=== PATIENT | male | born 1970 | race Hispanic/Latino ===

== ENCOUNTER 2018-03-08 12:50 | Emergency (ER) | payer OTHER ==
[2018-03-08] MEDS: NS 1,000 ML IV ×3 (13:30→15:15)
[2018-03-08 13:50] LABS: ABG HCO3 23.5 MEQ/L (22.0-26.0); ABG O2 SATURATION 94.7 % (95.0-99.0); ABG PARTIAL PRESSURE CO2 35.8 mmHg (35.0-45.0); ABG PARTIAL PRESSURE O2 71.5 mmHg (75.0-100.0); ABG STANDARD HCO3 24.4 MEQ/L (22.0-26.0); ABG TOTAL CO2 24.6 MEQ/L (22.0-29.0); ABG pH (ARTERIAL) 7.435 UNITS (7.350-7.450)
[2018-03-08 13:53] LABS: BASO # 0.1 10^3/uL (0.0-0.2); BASO % 0.8 % (0.0-1.0); EOS # 0.2 10^3/uL (0.0-0.50); EOS % 1.2 % (0.0-3.0); HEMATOCRIT 49.8 % (42.0-52.0); HEMOGLOBIN 17.9 g/dl (13.5-17.5); IMMATURE GRANULOCYTE % 1.1 % (0-3.0); LYMPH # 3.4 10^3/uL (1.5-4.5); MEAN CORPUSCULAR HEMOGLOBIN 28.5 pg (27.0-33.0); MEAN CORPUSCULAR HGB CONC 35.9 g/dl (32.0-36.5); MEAN CORPUSCULAR VOLUME 79.2 fl (80.0-96.0); MONO # 1.2 10^3/uL (0.0-0.8); MONO % 8.7 % (0.0-5.0); NEUTROPHILS # 8.6 10^3/uL (1.8-7.7); NEUTROPHILS % 63.2 % (36.0-66.0); PLATELET COUNT, AUTOMATED 238 10^3/uL (150-450); RED BLOOD COUNT 6.29 10^6/uL (4.30-6.10); RED CELL DISTRIBUTION WIDTH 11.7 % (11.5-14.5); WHITE BLOOD COUNT 13.5 10^3/uL (4.0-10.0)
[2018-03-08] MEDS: HumuLIN R (REGULAR) INSULIN (NovoLIN R) **100U/ML** PER UNIT IV (13:57)
[2018-03-08 14:08] LABS: ANION GAP 13 MEQ/L (8-16); BLOOD UREA NITROGEN 24 MG/DL (7-18); CALCIUM LEVEL 9.7 MG/DL (8.5-10.1); CARBON DIOXIDE LEVEL 23 MEQ/L (21-32); CHLORIDE LEVEL 89 MEQ/L (98-107); CREATININE FOR GFR 1.21 MG/DL (0.70-1.30); GLOMERULAR FILTRATION RATE > 60.0 (>60); POTASSIUM SERUM 4.2 MEQ/L (3.5-5.1); SODIUM LEVEL 125 MEQ/L (136-145)
[2018-03-08 14:12] LABS: ALBUMIN 3.8 GM/DL (3.2-5.2); ALBUMIN/GLOBULIN RATIO 0.78 (1.00-1.93); ALKALINE PHOSPHATASE 148 U/L (45-117); ALT/SGPT 83 U/L (12-78); AST/SGOT 48 U/L (7-37); BILIRUBIN,DIRECT 0.2 MG/DL (0.0-0.2); BILIRUBIN,TOTAL 1.1 MG/DL (0.2-1.0); LIPASE 222 U/L (73-393); TOTAL PROTEIN 8.7 GM/DL (6.4-8.2)
[2018-03-08 14:12] LABS: LACTIC ACID SEPSIS PROTOCOL 1.7 MMOL/L (0.4-2.0)
[2018-03-08 14:14] LABS: GLUCOSE, FASTING 585 MG/DL (70-100)
[2018-03-08 14:23] LABS: KETONE, URINE AUTO RFX 1+ mg/dL (NEGATIVE); LEUKOCYTE ESTERASE UR AUTO RFX NEGATIVE (NEGATIVE); NITRITE, URINE AUTO RFX NEGATIVE (NEGATIVE); RBC, URINE AUTO RFX 3 /HPF (0-3); SQUAM EPITHELIAL CELL UR AURFX 0 /HPF (0-6); WBC, URINE AUTO RFX 0 /HPF (0-3)
[2018-03-08 14:47] LABS: CPK CREATINE PHOSPHOKINASE 172 U/L (39-308); LIPASE 228 U/L (73-393)
[2018-03-08 15:04] LABS: BEDSIDE GLUCOSE 422 MG/DL (70-105)
[2018-03-08 15:08] LABS: CK-MB VALUE MASS 1.7 NG/ML (<3.6); MB/CK RELATIVE INDEX 0.98 (< OR =4); TROPONIN I < 0.02 NG/ML (< 0.10)
[2018-03-08 15:33] LABS: ESTIMATED AVERAGE GLUCOSE 298 MG/DL (60-110)
[2018-03-08 16:54] LABS: BEDSIDE GLUCOSE 291 MG/DL (70-105)
[2018-03-08] MEDS: metFORMIN (GLUCOPHAGE) 500 MG TAB PO (17:14)
[2018-03-09 09:29] LABS: BEDSIDE GLUCOSE > 600 MG/DL (70-105)
== END 2018-03-08 17:18 | disposition home or self-care (01) ==
LOC: M ED 12:50
DX: E11.65 Type 2 diabetes mellitus with hyperglycemia (principal)
CPT/HCPCS: 93005

== ENCOUNTER 2019-08-26 13:54 | Emergency (ER) | payer OTHER ==
[~2019-08-26] VITALS: Ht 182.9 cm; Wt 106.3 kg
[~2019-08-26 13:54] MED LIST: BLOOKIT21 XX; METF500T13 PO
[2019-08-26] MEDS ORDERED: NS 1,000 ML IV ONE (14:15)
[2019-08-26 14:22] LABS: BASO # 0.1 10^3/uL (0.0-0.2); BASO % 0.5 % (0.0-1.0); EOS # 0.1 10^3/uL (0.0-0.5); LYMPH # 3.1 10^3/uL (1.5-5.0); LYMPH % 23.8 % (24.0-44.0); MEAN CORPUSCULAR HEMOGLOBIN 28.7 pg (27.0-33.0); MEAN CORPUSCULAR HGB CONC 34.7 g/dl (32.0-36.5); MEAN CORPUSCULAR VOLUME 82.8 fl (80.0-96.0); MONO # 1.1 10^3/uL (0.0-0.8); MONO % 8.2 % (0.0-5.0); NEUTROPHILS # 8.5 10^3/uL (1.5-8.5); NEUTROPHILS % 65.6 % (36.0-66.0); PLATELET COUNT, AUTOMATED 209 10^3/uL (150-450); RED BLOOD COUNT 5.92 10^6/uL (4.30-6.10)
[2019-08-26 14:23] LABS: APPEARANCE, URINE CLEAR (CLEAR); BACTERIA, URINE AUTO 1+ (NEGATIVE); BILIRUBIN, URINE AUTO NEGATIVE (NEGATIVE); BLOOD, URINE BLOOD 3+ (NEGATIVE); COLOR, URINE YELLOW (YELLOW); GLUCOSE, URINE (UA) AUTO NEGATIVE (NEGATIVE); KETONE, URINE AUTO TRACE mg/dL (NEGATIVE); LEUKOCYTE ESTERASE, URINE AUTO NEGATIVE (NEGATIVE); MUCUS, URINE SMALL (NEGATIVE); NITRITE, URINE AUTO NEGATIVE (NEGATIVE); PROTEIN, URINE AUTO NEGATIVE (NEGATIVE); RBC, URINE AUTO 56 /HPF (0-3); SPECIFIC GRAVITY URINE AUTO 1.015 (1.002-1.035); SQUAMOUS EPITHELIAL CELL UR AU 0 /HPF (0-6); UROBILINOGEN, URINE AUTO 0.2 mg/dL (0.0-2.0); WBC, URINE AUTO 1 /HPF (0-3)
[2019-08-26] MEDS ORDERED: KETOROLAC 30 MG/ML VIAL (J1885) IV ONE (14:30)
[2019-08-26 14:47] LABS: ALBUMIN 4.1 GM/DL (3.2-5.2); BILIRUBIN,DIRECT 0.2 MG/DL (0.0-0.2); BILIRUBIN,TOTAL 1.3 MG/DL (0.2-1.0)
[2019-08-26] MEDS ORDERED: MORPHINE 4 MG/ML 1ML VIAL/SYRINGE (J2270) IV ONE (15:00)
[2019-08-26 16:18] VITALS: BP 150/92
[2019-08-26] MEDS ORDERED: TAMSULOSIN 0.4 MG CAP PO ONE (16:30)
[2019-08-26] MEDS ORDERED: KETO10TAB PO (16:50)
[2019-08-26] MEDS ORDERED: NORC1TAB7 PO (16:50)
[2019-08-26] MEDS ORDERED: MACR100C43 PO (16:50)
[2019-08-26] MEDS ORDERED: FLOM0.4C39 PO (16:50)
--- NOTE | 2019-08-27 06:52 | REP ---
CT abdomen and pelvis without IV or oral contrast: History: Flank pain and hematuria. No comparison study. 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 The lung bases are clear on axial CT images. There is mild to moderate diffuse fatty infiltration of the liver. Liver is normal in size. The spleen measures 14 cm in greatest dimension and is considered mildly enlarged. This is essentially unchanged from CT study of the chest February 21, 2010. This is not a new finding. No adrenal lesion is seen. No abnormality is noted in the pancreas or the gallbladder. The right kidney is unremarkable. On the left, there is mild to moderate hydronephrosis. There is an intrarenal calculus 5 mm in diameter in the lower pole of the left kidney. Left-sided hydroureter is seen with mild periureteral edema. This is due to a distal ureteral calculus which measures 8.7 mm in greatest diameter. This is located in the superior true pelvis, well above the ureterovesical junction. No bladder calculus is seen. No right ureteral calculus is observed. Small and large intestinal bowel loops are unremarkable. A normal appendix is seen in the right lower quadrant. Seminal vesicles and prostate are unremarkable. No abdominal wall defect is seen. Impression: Moderate left-sided hydronephrosis and hydroureter due to an obstructing 8.7 mm calculus in the distal ureter at the level of the superior true pelvis. There is an intrarenal calculus in the lower pole of the left kidney as well. Electronically Signed by Art Reyes MD 08/27/2019 08:27 A
--- NOTE | 2019-08-27 12:23 | CR ---
DATE OF CONSULTATION: 08/26/2019 CHIEF COMPLAINT: Left flank pain. REASON FOR CONSULTATION: Distal left ureteral calculus with mild hydronephrosis. HISTORY OF PRESENT ILLNESS: This is a 49-year-old white male who presented to the hospital because of sudden onset of left flank pain that was not relieved with ibuprofen. He has a past history of stones in 2005 and he passed that spontaneously. When he presented to the emergency room, a CAT scan was performed showing an 8.7 mm distal left ureteral calculus with mild hydronephrosis. SOCIAL HISTORY: Patient is . ALLERGIES: None. REVIEW OF SYSTEMS: A 12 review of systems normal. PHYSICAL EXAMINATION: Patient is alert, oriented and in no acute distress. HEENT: Pupils are equal and reactive to light. Sclerae white. Extraocular muscles intact. Neck is supple without adenopathy. Trachea is in the midline. CHEST: Normal thoracic with breath sounds bilaterally, present, equal and clear. ABDOMEN: Slightly rounded, soft, benign with no masses, organomegaly or tenderness. BACK: Some left-sided costovertebral angle (CVA) discomfort but no CVA tenderness. EXTREMITIES: Have good range of motion. LABORATORY DATA: CT scan confirmed 8.7 mm calculus in distal left ureter with a few other smaller calcifications in the left kidney. ASSESSMENT: Distal left ureteral calculus with mild hydronephrosis. I discussed with the patient the options, which would include stent insertion, extracorporeal shockwave lithotripsy (ESWL) or ureteroscopic treatment. Because of the stone's location, I recommended consideration for ureteroscopic laser lithotripsy. The patient does not wish a stent at this time, since the pain is quite tolerable. He will therefore be discharged home with instructions to follow up in the clinic for further evaluation and scheduling for ureteroscopic laser lithotripsy for a left distal ureteral 8.7 mm stone. [facility]
== END 2019-08-26 17:11 | disposition home or self-care (01) ==
LOC: M ED 13:54
DX: N20.1 Calculus of ureter (principal); N13.39 Other hydronephrosis; N13.4 Hydroureter; R11.0 Nausea; Z87.442 Personal history of urinary calculi
CPT/HCPCS: 74176; 80047; 80076; 81001; 82150; 83690; 85025; 96374; 99284; G0463; J1885

== ENCOUNTER 2019-08-31 10:29 | Day surgery (SDC) | payer OTHER ==
[~2019-08-31] VITALS: Ht 182.9 cm; Wt 104.4 kg
[~2019-08-31 10:29] MED LIST changes: +FLOM0.4C39 PO; +KETO10TAB PO; +LIDOCAINE 1% MDV 20ML VIAL SQ PRN; +LR 1,000 ML IV ONE; +MACR100C43 PO; +NORC1TAB7 PO; +ceFAZolin SOD 2 GM in IV 1 EA IV ONE
[2019-08-31] MEDS ORDERED: PROPOFOL 200 MG/20 ML VIAL As Ordered ONE (11:48)
[2019-08-31] MEDS ORDERED: LIDOCAINE 2% INJ 100 MG/5 ML SDV (FOR ANES.) As Ordered ONE (11:48)
[2019-08-31] MEDS ORDERED: fentaNYL 100 MCG/2 ML INJECTION (J3010) As Ordered ONE (11:49)
[2019-08-31] MEDS ORDERED: MIDAZOLAM INJ 2 MG/2 ML VIAL (J2250) As Ordered ONE (11:49)
[2019-08-31] MEDS ORDERED: CONRAY-60 60% 50ML VIAL (Q9961) As Ordered ONE (13:01)
[2019-08-31 13:14] LABS: INR 1.05; PROTHROMBIN TIME 13.5 SECONDS (11.8-14.0)
[2019-08-31] MEDS ORDERED: dexameTHASONE 4 MG/ML 1ML VIAL (J1100) As Ordered ONE (13:48)
[2019-08-31] MEDS ORDERED: KETOROLAC 60 MG/2 ML VIAL (J1885) As Ordered ONE (14:01)
[2019-08-31] MEDS ORDERED: ONDANSETRON 4MG/2ML VIAL (J2405) As Ordered ONE (14:01)
[2019-08-31] MEDS ORDERED: ONDANSETRON 4MG/2ML VIAL (J2405) IV PRN (14:45)
[2019-08-31] MEDS ORDERED: ACETAMINOPHEN TAB 650MG DOSE (2X325MG) PO PRN (14:45)
[2019-08-31] MEDS ORDERED: PERCOCET 5MG/325MG TAB PO PRN (14:45)
[2019-08-31] MEDS ORDERED: fentaNYL 100 MCG/2 ML INJECTION (J3010) IV PRN (14:45)
[2019-08-31] MEDS ORDERED: LR 1,000 ML IV SCH (14:45)
[2019-08-31] MEDS ORDERED: oxyCODONE 5MG TAB PO PRN (14:45)
[2019-08-31] MEDS ORDERED: METOCLOPRAMIDE INJ 10MG/2ML VIAL (J2765) IV PRN (14:45)
[2019-08-31] MEDS ORDERED: METOCLOPRAMIDE INJ 10MG/2ML VIAL (J2765) As Ordered ONE (14:55)
[2019-08-31 16:13] VITALS: BP 155/100
--- NOTE | 2019-08-31 17:41 | REP ---
VIEWS DURING LEFT URETERAL STENT PLACEMENT: Two C-ARM views are performed. Left ureteral stent is placed with the proximal end coiled in partially opacified left renal pelvis and the distal end coiled in the region of the urinary bladder. 6 seconds of fluoroscopy time was utilized. Electronically Signed by Houston Skelton MD 09/01/2019 04:59 P
--- NOTE | 2019-09-02 13:45 | RO ---
DATE OF PROCEDURE: 08/31/2019 PREPROCEDURE DIAGNOSIS: Left kidney and ureteral stones. POSTPROCEDURE DIAGNOSIS: Left kidney and ureteral stones. PROCEDURE: Cystoscopy, left ureteroscopy with laser lithotripsy and basket extraction of stones, left retrograde pyelogram with intraoperative interpretative images, left ureteral stent placement. SURGEON: Dr. Wilfred Padilla. COAL WASHER TENDER: None. ANESTHESIA: General. OPERATIVE INDICATIONS: This is a 49-year-old male who was found to have an obstructive 8-9 mm distal left ureteral stone as well as an approximately 4 mm left kidney stone. He was brought to the operating room today for treatment. DESCRIPTION OF PROCEDURE: The patient was brought to the operating room and general anesthesia was induced. Prophylactic antibiotics were infused. He was then placed in the dorsal lithotomy position and prepped and draped in the usual sterile fashion. A rigid cystoscope was inserted into the urethral meatus and advanced into the bladder. A guidewire was then advanced into the left collecting system. I then went up the left collecting system with a short semi-rigid ureteral scope and looked into the distal ureter the approximately 8 mm stone was seen. The stone was then fragmented into smaller pieces using a 272 micron laser fiber. All the fragments were then removed using a basket. I then examined the more proximal ureter and no additional stones were seen. I then advanced a ureteral access sheath over the wire into the left collecting system. I went up the access sheath and examined the kidney thoroughly. The only stone seen was an approximately 4 mm stone in the lower pole linda. The stone was then grasped with a basket and withdrawn. After than was done, a retrograde pyelogram was performed and was notable for mild left hydronephrosis with no extravasation. I then withdrew the ureteroscope and removed the access and no additional stones were seen within the ureter. I then utilized the wire to advance a #6-Portuguese x 22-32 cm JJ ureteral stent into the left collecting system. The wire was removed and there were adequate curls of the stent in the left renal pelvis and into the bladder. The bladder was then emptied of all fluids. This marked the conclusion of the procedure. The patient was taken out of the dorsal lithotomy position, awakened from anesthesia and transported to the recovery room in stable condition. ESTIMATED BLOOD LOSS: 5 mL. COMPLICATIONS: None. SPECIMENS: Kidney stone fragments. PLAN: The patient will followup in the clinic in a few weeks for stent removal. MTDD
== END 2019-08-31 16:35 | disposition home or self-care (01) ==
LOC: M SDC 10:29
PROVIDERS: ATTEND Urology
DX: N20.2 Calculus of kidney with calculus of ureter (principal); E11.9 Type 2 diabetes mellitus without complications; Z79.899 Other long term (current) drug therapy
CPT/HCPCS: 36415; 52356; 74420; 82360; 85610; 88300; C1769; C1894; C2617; J0690; J1100; J1885; J2250; J2405; J3010; Q9961

== ENCOUNTER 2021-08-29 07:50 | Inpatient (IN) | payer OTHER ==
[~2021-08-29] VITALS: Ht 195.6 cm; Wt 101.1 kg
[~2021-08-29 07:50] MED LIST changes: -LIDOCAINE 1% MDV 20ML VIAL SQ PRN; -LR 1,000 ML IV ONE; -ceFAZolin SOD 2 GM in IV 1 EA IV ONE
--- NOTE | 2021-08-29 08:42 | REP ---
INDICATION: CVA - Nursing interventions must not delay CT. COMPARISON: None. TECHNIQUE: Contiguous 5 mm thick axial projection images were obtained of the head. 2D coronal reconstructions were performed. FINDINGS: There is no evidence of acute intracranial hemorrhage or infarction. There are no abnormal intracranial masses or mass effect. There is calcific vascular disease of the intracranial portion of both internal carotid arteries. There is a 2.0 cm in diameter mucous retention cyst or polyp in the left maxillary sinus. Skull base and calvarium are normal. The intraorbital contents are normal. The extracranial soft tissues are unremarkable. IMPRESSION: 1. No evidence of intracranial pathology. 2. Mucous retention cyst or polyp in the left maxillary sinus. <Electronically signed by Dung Vences > 08/29/21 0821
[2021-08-29 08:51] LABS: BASO # 0.1 10^3/uL (0.0-0.2); BASO % 0.7 % (0.0-1.0); EOS # 0.2 10^3/uL (0.0-0.5); EOS % 2.5 % (0.0-3.0); HEMATOCRIT 48.2 % (42.0-52.0); HEMOGLOBIN 16.5 g/dl (13.5-17.5); LYMPH % 22.3 % (24.0-44.0); MEAN CORPUSCULAR HEMOGLOBIN 27.9 pg (27.0-33.0); MEAN CORPUSCULAR HGB CONC 34.2 g/dl (32.0-36.5); MEAN CORPUSCULAR VOLUME 81.6 fl (80.0-96.0); MONO # 0.8 10^3/uL (0.0-0.8); MONO % 8.6 % (2.0-8.0); NEUTROPHILS % 64.9 % (36.0-66.0); PLATELET COUNT, AUTOMATED 193 10^3/uL (150-450); RED BLOOD COUNT 5.91 10^6/uL (4.30-6.10); WHITE BLOOD COUNT 9.2 10^3/uL (4.0-10.0)
--- NOTE | 2021-08-29 08:53 | REP ---
INDICATION: CVA COMPARISON: None. TECHNIQUE: Portable AP view of the chest FINDINGS: The mediastinum and cardiac silhouette are within normal limits for portable technique. The lung guzmán are clear without acute consolidation, effusion, or pneumothorax. Skeletal structures are intact. IMPRESSION: No acute cardiopulmonary process appreciated. <Electronically signed by Scott Dos Santos > 08/29/21 0816
[2021-08-29 09:07] LABS: INR 0.98; PROTHROMBIN TIME 13.4 SECONDS (12.7-14.5)
[2021-08-29 09:08] LABS: PARTIAL THROMBOPLASTIN TIME 30.3 SECONDS (25.9-37.0)
--- OUTSIDE RECORDS SUMMARY | 2021-08-29 09:11 | CCD ---
Author Author [facility] Organization [facility] Address Unknown Phone Unavailable Support Name Relationship Address Phone [place] [address] [place] Next Of Kin Unknown RE Next Of Kin Unknown Unavailable CHRISTINE HERNANDEZLY Next Of Kin [address] [address] [facility] [place] [address] [facility] [place] [address] MAHNAZ DIMAS Next Of Kin [address] [place] [address] MAHNAZ HERNANDEZ ECON [address] [place] [address] Unavailable Re-disclosure Warning The records that you are about to access may contain information from federally-assisted alcohol or drug abuse programs. If such information is present, then the following federally mandated warning applies: This information has been disclosed to you from records protected by federal confidentiality rules (42 CFR part 2). The federal rules prohibit you from making any further disclosure of this information unless further disclosure is expressly permitted by the written consent of the person to whom it pertains or as otherwise permitted by 42 CFR part 2. A general authorization for the release of medical or other information is NOT sufficient for this purpose. The Federal rules restrict any use of the information to criminally investigate or prosecute any alcohol or drug abuse patient.The records that you are about to access may contain highly sensitive health information, the redisclosure of which is protected by Article 27-F of the [facility] Public Health law. If you continue you may have access to information: Regarding HIV / AIDS; Provided by facilities licensed or operated by the [facility] Office of Mental Health; or Provided by the [facility] Office for People With Developmental Disabilities. If such information is present, then the following [facility] mandated warning applies: This information has been disclosed to you from confidential records which are protected by state law. State law prohibits you from making any further disclosure of this information without the specific written consent of the person to whom it pertains, or as otherwise permitted by law. Any unauthorized further disclosure in violation of state law may result in a fine or shelter sentence or both. A general authorization for the release of medical or other information is NOT sufficient authorization for further disc losure. Medications No Information Insurance Providers Payer name Policy type / Coverage type Policy ID Covered constitution party ID Covered constitution party's relationship to gonsalves Policy Gonsalves Plan Information [facility] [id number] SP [id number] [facility] [id number] SP [id number] ANSI-Not a Secondary Insurance [id number] [facility] ACTIVE DUT[place] [id number] SP [id number] Problems, Conditions, and Diagnoses No Information Surgeries/Procedures No Information Results No Information Social History No Information
[2021-08-29 09:22] LABS: CK-MB VALUE MASS < 1.0 NG/ML (<3.6); CPK CREATINE PHOSPHOKINASE 131 U/L (39-308); MB/CK RELATIVE INDEX 0.76 (< OR =4); TROPONIN I < 0.02 NG/ML (< 0.10)
[2021-08-29 09:42] LABS: RSV AMPLIFICATION NEGATIVE (NEGATIVE)
[2021-08-29] MEDS ORDERED: METF500T13 PO (09:56)
[2021-08-29] MEDS ORDERED: LISI10TA22 PO (09:56)
[2021-08-29] MEDS ORDERED: HOME MED LIST COMPLETE! XX SCH (10:00)
--- OUTSIDE RECORDS SUMMARY | 2021-08-29 10:11 | CCD ---
Author Author [facility] Organization [facility] Address Unknown Phone Unavailable Support Name Relationship Address Phone [place] [address] [place] Next Of Kin Unknown RE Next Of Kin Unknown Unavailable CHRISTINE HERNANDEZLY Next Of Kin [address] [place] [address] [facility] [place] [address] MAHNAZ DIMAS Next Of Kin [address] [facility] [place] [address] MAHNAZ HERNANDEZ ECON [address] [place] [address] Unavailable Re-disclosure Warning The records that you [...] is protected by Article 27-F of the [facility] Public Health law. If you continue you may have access to information: Regarding HIV / AIDS; Provided by facilities licensed or operated by the [facility] Office of Mental Health; or Provided by the [facility] Office for People With Developmental Disabilities. If such information is present, then the following [facility] mandated warning applies: This information has [...] law may result in a fine or long term sentence or both. A general authorization for the release of medical or other information is NOT sufficient authorization for further disc losure. Medications No Information Insurance Providers Payer name Policy type / Coverage type Policy ID Covered republican ID Covered republican's relationship to gonsalves Policy Gonsalves Plan Information [facility] [id number] SP [id number] [facility] [id number] SP [id number] ANSI-Not a Secondary Insurance [id number] [facility] ACTIVE D[place] [id number] SP [id number] Problems, Conditions, and Diagnoses No Information Surgeries/Procedures No Information Results No Information Social History No Information
[2021-08-29] MEDS: ASPIRIN 81MG ENTERIC TABLET PO SCH (10:20)
[2021-08-29] MEDS: ATORVASTATIN 20 MG TAB PO SCH (10:20)
--- NOTE | 2021-08-29 12:17 | REPVR ---
PROCEDURE INFORMATION: Exam: MR Head Without Contrast Exam date and time: 08/29/2021 12:07 PM Age: 51 years old Clinical indication: Hemiplegia and hemiparesis; Right side, dominance unknown; Additional info: Right hemiplegia TECHNIQUE: Imaging protocol: MR of the head without contrast. COMPARISON: CT Head without contrast 08/29/2021 8:23 AM FINDINGS: Brain: Left thalamocapsular as well as medial left temporal lobe regions of true diffusion restriction with correlative cytotoxic edema on the T2 weighted imaging consistent with acute to subacute recent infarcts. The largest infarcts measure 9 x 7 mm (medial temporal) and 8 x 7 mm (thalamocapsular). No evidence of hemorrhagic conversion. Cerebral ventricles: Normal. No ventriculomegaly. Bones/joints: Unremarkable. Paranasal sinuses: Retention cyst or polyp in the left maxillary sinus. Trace ethmoid mucosal disease. Mastoid air cells: Normal as visualized. No mastoid effusion. Orbital cavity: Unremarkable. Soft tissues: Unremarkable. 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 Electronically signed by: Lauren Hanks On 08/29/2021 12:17:02 PM
--- NOTE | 2021-08-29 12:22 | REPVR ---
PROCEDURE INFORMATION: Exam: MRA Head Without Contrast; Arteriography Exam date and time: 08/29/2021 12:07 PM Age: 51 years old Clinical indication: Other: Right hemiplegia. Given the clinical concern for stroke, evaluation of the arteries was performed. TECHNIQUE: Imaging protocol: Magnetic resonance angiography head without contrast. Exam focused on the arteries. COMPARISON: CT Head without contrast 08/29/2021 8:23 AM FINDINGS: ANTERIOR CIRCULATION: Right internal carotid artery: Intracranial segment is patent with no significant stenosis. No aneurysm. Right middle cerebral artery: No occlusion or significant stenosis. No aneurysm. Right anterior cerebral artery: No occlusion or significant stenosis. No aneurysm. Left internal carotid artery: Intracranial segment is patent with no significant stenosis. No aneurysm. Left middle cerebral artery: No occlusion or significant stenosis. No aneurysm. Left anterior cerebral artery: No occlusion or significant stenosis. No aneurysm. 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 Left vertebral artery: The left vertebral artery is dominant. Patent. Basilar artery: No occlusion or severe stenosis. There may be a mild stenosis of the proximal basilar artery, image 6 series 206. No aneurysm. Right posterior cerebral artery: Patent. origin of the right posterior cerebral artery. Left posterior cerebral artery: No occlusion or significant stenosis. No aneurysm. IMPRESSION: No proximal intracranial arterial occlusion or significant proximal stenosis seen. Electronically signed by: Lauren Hanks On 08/29/2021 12:22:03 PM
[2021-08-29] MEDS: ENOXAPARIN 40MG/0.4ML SYRINGE (J1650 PER 10MG) SC SCH (12:31)
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
[2021-08-29] MEDS: HumaLOG INSULIN (NovoLOG) PER UNIT SC SCH ×2 (17:30→22:45)
[2021-08-29 20:50] VITALS: BP 160/92
[2021-08-30] VITALS: BP 104/67
[2021-08-30 04:00] VITALS: BP 121/76
[2021-08-30 05:28] LABS: BASO # 0.1 10^3/uL (0.0-0.2); BASO % 0.5 % (0.0-1.0); EOS # 0.3 10^3/uL (0.0-0.5); HEMATOCRIT 47.4 % (42.0-52.0); HEMOGLOBIN 16.1 g/dl (13.5-17.5); LYMPH # 3.2 10^3/uL (1.5-5.0); LYMPH % 29.8 % (24.0-44.0); MEAN CORPUSCULAR HEMOGLOBIN 27.8 pg (27.0-33.0); MEAN CORPUSCULAR VOLUME 81.7 fl (80.0-96.0); MONO # 1.1 10^3/uL (0.0-0.8); MONO % 10.7 % (2.0-8.0); NEUTROPHILS # 5.9 10^3/uL (1.5-8.5); NEUTROPHILS % 55.2 % (36.0-66.0); PLATELET COUNT, AUTOMATED 196 10^3/uL (150-450); WHITE BLOOD COUNT 10.6 10^3/uL (4.0-10.0)
[2021-08-30 05:59] LABS: CHOLESTEROL RISK RATIO 5.717 (<5)
[2021-08-30 06:09] LABS: BLOOD UREA NITROGEN 16 MG/DL (7-18); CALCIUM LEVEL 9.3 MG/DL (8.5-10.1); CARBON DIOXIDE LEVEL 26 MEQ/L (21-32); CHLORIDE LEVEL 106 MEQ/L (98-107); CREATININE FOR GFR 1.14 MG/DL (0.70-1.30); GLOMERULAR FILTRATION RATE > 60.0 (>60); GLUCOSE, FASTING 123 MG/DL (70-100); POTASSIUM SERUM 4.1 MEQ/L (3.5-5.1); SODIUM LEVEL 138 MEQ/L (136-145)
[2021-08-30 08:00] VITALS: BP 140/90
--- NOTE | 2021-08-30 08:04 | ECGEPIP ---
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
[2021-08-30] MEDS: HumaLOG INSULIN (NovoLOG) PER UNIT SC SCH ×4 (08:19→21:00)
[2021-08-30] MEDS: ASPIRIN 81MG ENTERIC TABLET PO SCH (09:30)
[2021-08-30] MEDS: ATORVASTATIN 20 MG TAB PO SCH (09:30)
[2021-08-30] MEDS: ENOXAPARIN 40MG/0.4ML SYRINGE (J1650 PER 10MG) SC SCH (09:31)
--- NOTE | 2021-08-30 10:36 | ECHO ---
ECHOCARDIOGRAM DATE OF PROCEDURE: 08/29/2021 Age: Gender: Male Height: 191 cm Weight: 105 kg REFERRING PHYSICIAN: Kimberli Chauhan M.D. INDICATION: Acute stroke. MEASUREMENTS: 2D Measurements: Left atrium 3.2 cm Intraventricular septum 1.57 cm Posterior wall 1.18 cm Left ventricle diastole 3.6 cm Aortic root 3.2 cm Inferior vena cava 2.1 cm Doppler Measurements: No aortic regurgitation No aortic stenosis Aortic valve velocity 140 cm/sec LVOT velocity 99.7 cm/sec LVOT VTI 22.1 cm No mitral regurgitation No mitral stenosis Mitral E velocity 70.3 cm/sec Mitral A velocity 71.1 cm/sec Mitral deceleration time 230 msec No tricuspid regurgitation No pulmonic regurgitation Pulmonary artery acceleration time 95 msec MITRAL ANNULAR TISSUE DOPPLER: E prime septal 5.8 cm/sec E prime lateral 10.0 cm/sec DESCRIPTION: Rhythm was sinus. Image quality was fair. No pericardial effusion. This was a 2D, M-mode, color flow Doppler and pulse wave Doppler examination and included mitral annular tissue Doppler. CONCLUSIONS: 1. Mild concentric left ventricular hypertrophy. Normal regional left ventricular (LV) wall motion and wall thickening. Normal LV systolic function. Left ventricular ejection fraction (LVEF) 55% by visual estimate. Grade 1 LV diastolic dysfunction. 2. Otherwise normal appearing echocardiogram Doppler findings.
--- NOTE | 2021-08-30 11:10 | IPNPDOC ---
Subjective Date Seen The patient was seen on 08/30/21. Subjective Chief Complaint/HPI No acute events overnight. He has cleared PT for home with the home PT. He reports that his hands and legs are feeling stronger Objective Physical Examination General Exam: Positive: Alert, Cooperative, No Acute Distress Eye Exam: Positive: PERRLA, Conjunctiva & lids normal, EOMI; Negative: Sclera icteric ENT Exam: Positive: Atraumatic, Mucous membr. moist/pink, Pharynx Normal, Other ENT (Right-sided facial droop and deviation of the angle of the mouth to the left) Neck Exam: Positive: Supple; Negative: JVD, thyromegaly Chest Exam: Positive: Clear to auscultation, Normal air movement Heart Exam: Positive: Rate Normal, Regular Rhythm, Normal S1, Normal S2; Negative: Murmurs, Rubs Telemetry: Positive: No significant arrhythmia Abdomen Exam: Positive: Normal bowel sounds, Soft; Negative: Tenderness Extremity Exam: Negative: Clubbing, Cyanosis, Edema Skin Exam: Positive: Nl turgor and temperature; Negative: Breakdown, Lesion Neuro Exam: Positive: Other (Dysarthria, power 3 x 5 in the right upper extremity and 3 x 5 in the right lower extremity, right inattention) Psych Exam: Positive: Memory Intact, Oriented x 3 Assessment /Plan Assessment 51-year-old right-handed male with history of diabetes, hypertension, kidney stones presented to the emergency room with right-sided weakness which started last night at around 8 PM. Patient reported that on 08/25/2021 he felt a little weakness of his right hand but improved so he did not pay any attention. Then again on 08/28/2021 he noticed right-handed weakness while he was at work EMS was called they evaluated him and did not see any weakness and there was no change in speech so was instructed to follow-up with the primary care provider. After he got home from work he noticed a change in his speech and he was having trouble drinking fluids and then in the evening while he was playing videogames he was having trouble using his right hand. He was having trouble with coordination of the right hand and could not control the suri console properly. He fell asleep and when he woke up this morning he had severe weakness of his right upper extremity right lower extremity with abnormality in speech and deviation of the face to the left so presented to the emergency room. In the ED he was noted to have right-sided hemiparesis. He had a CT head done which was negative for any acute stroke. He subsequently had an MRI of brain done which showed multiple small all less than 1 cm acute to subacute stroke strokes in the left thalamus, capsular and medial temporal lobes coinciding with the left DECORATIVE GREENS CUTTER territory. Patient was admitted for acute cerebral infarction with right-sided hemiparesis. Acute left sided cerebral infarction with right-sided hemiplegia Patient is right-handed. Start on aspirin 81 and atorvastatin 40 Maintain systolic blood pressure in 140-180 Hypercoagulable work-up sent The patient on telemetry. No events till date Echo Left ventricular ejection fraction (LVEF) 55% by visual estimate. Grade 1 LV diastolic dysfunction. Check lipid panel Neurology consult PT /OT and swallow evaluation MRA carotids pending Hypertension Will allow permissive hypertension for the first 48 to 72-hour We will hold lisinopril Diabetes controlled A1c is 6 Will give a lispro as per sliding scale Plan/VTE VTE Prophylaxis Ordered?: Yes VS, I&O, [facility], [facility] Vital Signs/I&O Vital Signs Date Time Temp Pulse Resp B/P (MAP) Pulse Ox O2 Delivery O2 Flow Rate FiO2 08/30/21 04:00 97.0 61 18 121/76 (91) 97 Room Air Laboratory Data 24H LABS Laboratory Tests 2 08/29/21 08:33: Immature Granulocyte % (Auto) 1.0, Neutrophils (%) (Auto) 64.9, Lymphocytes (%) (Auto) 22.3L, Monocytes (%) (Auto) 8.6H, Eosinophils (%) (Auto) 2.5, Basophils (%) (Auto) 0.7, Neutrophils # (Auto) 6.0, Lymphocytes # (Auto) 2.0, Monocytes # (Auto) 0.8, Eosinophils # (Auto) 0.2, Basophils # (Auto) 0.1, Nucleated Red Blood Cells % (auto) 0.0, Prothrombin Time 13.4, Prothromb Time International Ratio 0.98, Activated Partial Thromboplast Time 30.3, POC Prothrombin Time (Misc) 12.8, POC INR (Misc) 1.1, Estimated Mean Plasma Glucose 126H, Hemoglobin A1c 6.0, Total Creatine Kinase 131, Creatine Kinase MB < 1.0, Creatine Kinase MB Relative Index 0.76, Troponin I < 0.02, Coronavirus (COVID-19)(PCR) NEGATIVE, Influenza Type A (RT-PCR) NEGATIVE, Influenza Type B (RT-PCR) NEGATIVE, Respiratory Syncytial Virus (PCR) NEGATIVE 08/29/21 08:35: POC Glucose (Misc Panel) 140H, POC Sodium (Misc Panel) 140, POC Potassium (Misc Panel) 3.9, POC Chloride (Misc Panel) 104, POC Total CO2 (Misc Panel) 21.0L, POC Blood Urea Nitrogen (Misc Panel 14, POC Ionized Calcium (Misc Panel) 5.3, POC Creatinine (Misc Panel) 0.8, POC Hematocrit (Misc Panel) 49.0 08/29/21 14:15: C-Reactive Protein, Quantitative < 0.30 08/29/21 14:16: Erythrocyte Sedimentation Rate 7 08/29/21 18:17: Bedside Glucose (Misc Panel) 98 08/29/21 22:41: Bedside Glucose (Misc Panel) 98 08/30/21 05:10: Immature Granulocyte % (Auto) 0.8, Neutrophils (%) (Auto) 55.2, Lymphocytes (%) (Auto) 29.8, Monocytes (%) (Auto) 10.7H, Eosinophils (%) (Auto) 3.0, Basophils (%) (Auto) 0.5, Neutrophils # (Auto) 5.9, Lymphocytes # (Auto) 3.2, Monocytes # (Auto) 1.1H, Eosinophils # (Auto) 0.3, Basophils # (Auto) 0.1, Nucleated Red Blood Cells % (auto) 0.0, Anion Gap 6L, Glomerular Filtration Rate > 60.0, Calcium Level 9.3, Triglycerides Level 161H, Total Cholesterol 223H, LDL Cholesterol 152H, Non-HDL Cholesterol (LDL + VLDL) 184, Total HDL Cholesterol 39L, Cholesterol/HDL Ratio 5.717H, Thyroid Stimulating Hormone (TSH) 1.990 CBC/BMP Laboratory Tests 08/29/21 08:33 08/30/21 05:10 Kimberli Chauhan MD Aug 30, 2021 07:07
--- NOTE | 2021-08-30 12:43 | REPVR ---
PROCEDURE INFORMATION: Exam: MRA Neck Without Contrast Exam date and time: 08/30/2021 12:01 PM Age: 51 years old Clinical indication: Other: Right hemiplegia; Additional info: Acute stroke TECHNIQUE: Imaging protocol: Magnetic resonance angiography of the neck without contrast. COMPARISON: MRA BRAIN W/O CONTRAST 08/29/2021 11:35 AM FINDINGS: Right common carotid artery: No stenosis. No dissection or occlusion. Right internal carotid artery: No stenosis of the extracranial segment. No dissection or occlusion. Right external carotid artery: No stenosis. No dissection or occlusion of the origin. Right vertebral artery: Non dominant unremarkable right vertebral artery. Left common carotid artery: No stenosis. No dissection or occlusion. Left internal carotid artery: No stenosis of the extracranial segment. No dissection or occlusion. Left external carotid artery: No stenosis. No dissection or occlusion of the origin. Left vertebral artery: Dominant unremarkable left vertebral artery. IMPRESSION: Limited study secondary to motion artifact. No stenosis. No dissection or occlusion. REFERENCES: NASCET CRITERIA. The degree of internal carotid artery stenosis is based on NASCET criteria. Normal is no stenosis. Mild is less than 50% stenosis. Moderate is 50-69% stenosis. Severe is 70% to 99% stenosis. Total occlusion is no detectable patent lumen. Electronically signed by: Vannessa Hamlin On 08/30/2021 12:42:28 PM
--- NOTE | 2021-08-30 14:43 | CR ---
NEUROLOGY CONSULTATION DATE: 08/29/2021 REFERRING PHYSICIAN: Dr. Kimberli Chauhan CONSULTING PHYSICIAN: Dr. Hugo Novoa REASON FOR CONSULTATION: Acute stroke. HISTORY OF PRESENT ILLNESS: The patient is a 51-year-old right handed male with a past medical history significant for type 2 diabetes and hypertension who presented with the chief complaint of experiencing on and off right upper extremity clumsiness of his hand and arm. The symptoms started Wednesday and resolved on their own. On , 08/28/2021 again they came back. The patient was assessed by EMS and was told that he is not having a stroke and that he should follow up with his primary care provider, so he was not taken to the hospital. In the middle of the night the patient also experienced weakness and ataxia and numbness of the right upper extremity in the early hours of Wednesday, on the 29 of August. He woke up without the ability to use his right arm. He was brought to [facility]. MRI of the brain does reveal multiple small, less than one cm, acute ischemic strokes in the left thalamus, capsular and medial temporal lobes, one setting with left PLATEN PRESS FEEDER territory. MRI angiogram did not reveal any acute intracranial pathology. MR angiogram of the carotids was not completed. CT angiogram of the carotids was not completed. This is pending. The patient was placed on 81 mg Aspirin and Lipitor. His diabetes he states is well controlled and his blood pressure has also been well controlled at home. He is not a smoker. His father had a stroke. Hypercoagulable vasculitic workup is pending. The patient denies any diplopia, dysarthria, dysphagia, vertigo. He complains of weakness and numbness of the right upper extremity. He has right facial weakness in an upper motor non distribution. REVIEW OF SYSTEMS: A 14-point review of systems was obtained and is negative except as per HPP. HOME MEDICATIONS: 1. Lisinopril 10 mg p.o. q. h.s. 2. Metformin 2,000 mg p.o. q. h.s. ALLERGIES: No known drug allergies. PAST MEDICAL HISTORY: The patient's past medical history is significant for: 1. Diabetes. 2. Hypertension. 3. Kidney stones. 4. Ureteral stones. PAST SURGICAL HISTORY: The patient's past surgical history is significant for: 1. Cystoscopy. 2. Left uteroscopy with lids lithotripsy basket extraction stones and stent placement in 2019. FAMILY HISTORY: Father with stroke. SOCIAL HISTORY: The patient denies use of any tobacco, alcohol or illicit drugs. PHYSICAL EXAMINATION: VITAL SIGNS: Blood pressure 148/92, pulse rate is 67, respiratory rate is 20, oxygenation 97% on room air. Temperature is 97 degrees Fahrenheit. GENERAL APPEARANCE: The patient is alert, oriented to person, place and time. NEUROLOGICAL: Speech, language, comprehension and repetition are intact. Pupils are 3 mm, round and reactive to light. The extraocular muscles are intact. The patient does have facial weakness of the right lower face. Tongue is midline. Sensation to light touch in V-1, V-2, V-3 is intact. Hearing is equal to finger rub. There is no loss of sensation to light touch in the left arm and leg and trunk. 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 Deep tendon reflexes are increased on the right, 2+ on the left. Babinski sign is mute on the right, downgoing on the left. Coordination reveals severe ataxia of the right upper extremity. Gait deferred. ASSESSMENT: 1. A 51-year-old right handed male with acute stroke involving the left PLATEN PRESS FEEDER territory with symptoms of right facial weakness, right upper extremity weakness, ataxia, sensory loss. PLAN: 1. Obtain MR angiogram carotid with and without contrast. 2. Continue Aspirin 81 mg daily. 3. Atorvastatin 40 mg daily. 4. Maintain systolic blood pressures 140-180 over the next 48 hours. 5. Complete hypercoagulable vasculitic workup. 6. Obtain echocardiogram. 7. Continue telemetry monitoring. 8. Recommend PT/OT evaluation. 9. Check lipids. Fasting lipid panel, TSH. 10. Optimize diabetes. 11. The patient will need to follow up in the outpatient neurology clinic within 4-6 weeks of discharge.
[2021-08-30 16:00] VITALS: BP 144/71
[2021-08-30 20:00] VITALS: BP 146/98
[2021-08-31 04:00] VITALS: BP 118/84
[2021-08-31 05:43] LABS: BASO # 0.1 10^3/uL (0.0-0.2); BASO % 0.7 % (0.0-1.0); EOS # 0.2 10^3/uL (0.0-0.5); EOS % 2.3 % (0.0-3.0); HEMATOCRIT 47.9 % (42.0-52.0); HEMOGLOBIN 16.2 g/dl (13.5-17.5); LYMPH # 2.7 10^3/uL (1.5-5.0); LYMPH % 26.9 % (24.0-44.0); MEAN CORPUSCULAR HEMOGLOBIN 27.8 pg (27.0-33.0); MEAN CORPUSCULAR HGB CONC 33.8 g/dl (32.0-36.5); MEAN CORPUSCULAR VOLUME 82.3 fl (80.0-96.0); MONO # 1.1 10^3/uL (0.0-0.8); NEUTROPHILS # 5.8 10^3/uL (1.5-8.5); NEUTROPHILS % 58.4 % (36.0-66.0); PLATELET COUNT, AUTOMATED 188 10^3/uL (150-450); RED BLOOD COUNT 5.82 10^6/uL (4.30-6.10); WHITE BLOOD COUNT 9.9 10^3/uL (4.0-10.0)
[2021-08-31 06:14] LABS: BLOOD UREA NITROGEN 15 MG/DL (7-18); CALCIUM LEVEL 9.3 MG/DL (8.5-10.1); CARBON DIOXIDE LEVEL 25 MEQ/L (21-32); CHLORIDE LEVEL 107 MEQ/L (98-107); CREATININE FOR GFR 1.14 MG/DL (0.70-1.30); GLOMERULAR FILTRATION RATE > 60.0 (>60); GLUCOSE, FASTING 126 MG/DL (70-100); POTASSIUM SERUM 4.1 MEQ/L (3.5-5.1); SODIUM LEVEL 140 MEQ/L (136-145)
[2021-08-31] MEDS: HumaLOG INSULIN (NovoLOG) PER UNIT SC SCH ×4 (07:48→21:00)
[2021-08-31 07:57] VITALS: BP 137/74
[2021-08-31] MEDS: ENOXAPARIN 40MG/0.4ML SYRINGE (J1650 PER 10MG) SC SCH (08:29)
[2021-08-31] MEDS: ATORVASTATIN 20 MG TAB PO SCH (08:30)
[2021-08-31] MEDS: ASPIRIN 81MG ENTERIC TABLET PO SCH (08:30)
[2021-08-31 12:50] VITALS: BP 148/110
--- NOTE | 2021-08-31 13:23 | IPNPDOC ---
Subjective Date Seen The patient was seen on 08/31/21. Subjective Chief Complaint/HPI No issues overnight. reports his weakness is improving. No swallowing issues. Objective Physical Examination General Exam: Positive: Alert, Cooperative, No Acute Distress Eye Exam: Positive: PERRLA, Conjunctiva & lids normal, EOMI; Negative: Sclera icteric ENT Exam: Positive: Atraumatic, Mucous membr. moist/pink, Pharynx Normal, Other ENT (Right-sided facial droop and deviation of the angle of the mouth to the left) Neck Exam: Positive: Supple; Negative: JVD, thyromegaly Chest Exam: Positive: Clear to auscultation, Normal air movement Heart Exam: Positive: Rate Normal, Regular Rhythm, Normal S1, Normal S2; Negative: Murmurs, Rubs Telemetry: Positive: No significant arrhythmia Abdomen Exam: Positive: Normal bowel sounds, Soft; Negative: Tenderness Extremity Exam: Negative: Clubbing, Cyanosis, Edema Skin Exam: Positive: Nl turgor and temperature; Negative: Breakdown, Lesion Neuro Exam: Positive: Other (Dysarthria, power 3 x 5 in the right upper extremity and 3 x 5 in the right lower extremity, right inattention) Psych Exam: Positive: Memory Intact, Oriented x 3 Assessment /Plan Assessment 51-year-old right-handed male with history of diabetes, hypertension, kidney stones presented to the emergency room with right-sided weakness which started last night at around 8 PM. Patient reported that on 08/25/2021 he felt a little weakness of his right hand but improved so he did not pay any attention. Then again on 08/28/2021 he noticed right-handed weakness while he was at work EMS was called they evaluated him and did not see any weakness and there was no change in speech so was instructed to follow-up with the primary care provider. After he got home from work he noticed a change in his speech and he was having trouble drinking fluids and then in the evening while he was playing videogames he was having trouble using his right hand. He was having trouble with coordination of the right hand and could not control the suri console properly. He fell asleep and when he woke up this morning he had severe weakness of his right upper extremity right lower extremity with abnormality in speech and deviation of the face to the left so presented to the emergency room. In the ED he was noted to have right-sided hemiparesis. He had a CT head done which was negative for any acute stroke. He subsequently had an MRI of brain done which showed multiple small all less than 1 cm acute to subacute stroke strokes in the left thalamus, capsular and medial temporal lobes coinciding with the left DIRECTOR OF CLINICAL EDUCATION territory. Patient was admitted for acute cerebral infarction with right-sided hemiparesis. Acute ischemic stroke Acute stroke involving the left DIRECTOR OF CLINICAL EDUCATION territory with symptoms of right facial weakness, right upper extremity weakness, ataxia, sensory loss. Patient is right-handed. Continue aspirin 81 and atorvastatin 40 Hypercoagulable work-up sent The patient on telemetry. No events till date Echo Left ventricular ejection fraction (LVEF) 55% by visual estimate. Grade 1 LV diastolic dysfunction. Neurology consult appreciated. PT /OT and swallow evaluation MRA carotids no occlusion or stenosis. Hypertension allowed permissive hypertension for the first 48 hours. Now will optimize control of BP. will restart lisinopril once BP rises above 140 systolic Diabetes controlled A1c is 6 Will give a lispro as per sliding scale Plan/VTE VTE Prophylaxis Ordered?: Yes VS, I&O, 24H, [facility] Vital Signs/I&O Vital Signs Date Time Temp Pulse Resp B/P (MAP) Pulse Ox O2 Delivery O2 Flow Rate FiO2 08/31/21 07:57 97.4 69 18 137/74 (95) 95 Room Air I&O- Last 24 Hours up to 6 AM 08/31/21 06:00 Intake Total 600 ml Balance 600 ml Laboratory Data 24H LABS Laboratory Tests 2 08/30/21 12:08: Bedside Glucose (Misc Panel) 149H 08/30/21 17:08: Bedside Glucose (Misc Panel) 140H 08/30/21 21:03: Bedside Glucose (Misc Panel) 183H 08/31/21 05:03: Immature Granulocyte % (Auto) 0.7, Neutrophils (%) (Auto) 58.4, Lymphocytes (%) (Auto) 26.9, Monocytes (%) (Auto) 11.0H, Eosinophils (%) (Auto) 2.3, Basophils (%) (Auto) 0.7, Neutrophils # (Auto) 5.8, Lymphocytes # (Auto) 2.7, Monocytes # (Auto) 1.1H, Eosinophils # (Auto) 0.2, Basophils # (Auto) 0.1, Nucleated Red Blood Cells % (auto) 0.0, Anion Gap 8, Glomerular Filtration Rate > 60.0, Calcium Level 9.3 CBC/BMP Laboratory Tests 08/31/21 05:03 Kimberli Chauhan MD Aug 31, 2021 08:58
[2021-08-31 14:00] VITALS: BP 158/103
[2021-08-31 15:21] VITALS: BP 138/88
[2021-08-31 19:42] VITALS: BP 136/92
[2021-09-01] MEDS ORDERED: ACETAMINOPHEN TAB 650MG DOSE (2X325MG) PO PRN (00:35)
[2021-09-01] MEDS ORDERED: MORPHINE 2 MG/ML 1ML VIAL (J2270) IV ONE (00:35)
[2021-09-01] MEDS ORDERED: MORPHINE 2 MG/ML 1ML VIAL (J2270) IV PRN (01:20)
--- NOTE | 2021-09-01 01:33 | IPNPDOC ---
Text Note Date of Service The patient was seen on 09/01/21. NOTE Notified patient with episode of chest pain. This is new. Stat EKG and Trop ordered. Patient seen at bedside reportedly chest pain-free, he describes pain lasting only a few minutes. At time of chest pain onset patient reports that he had just gotten back into bed after using the bathroom. Noticed he was having sharp chest pain of the right anterior pectoral area rated as 6 out of 10. Patient denies shortness of breath, palpitations, lightheadedness, diaphoresis, nausea, reflux or abdominal pain patient reports no significant cardiac history. He does have a significant history of high blood pressure, hyperlipidemia as well as the CVA. Patient denies feeling anxious or anxious thoughts at time of the chest pain. Blood pressure 146/98, heart rate 88, afebrile 98.6, respiratory rate 18, tolerating room air 98%. Patient on telemetry and no reported abnormalities. EKG normal sinus rhythm. Patient neuro exam unchanged from new baseline per RN Patient does have hemiparesis of the right upper extremity questionable whether or not there may be musculoskeletal component given patient had just ambulated and whether or not he has been compensating on the side. However, chest pain is not reproducible. Patient clear to auscultation, RRR, soft abdomen normoactive bowel sounds. No edema appreciated bilateral lower extremities. Reportedly, patient has not been an aspiration risk and patient denies any cough or choking episode while in hospital, however he does have the droop and speech changes from CVA. Chest x-ray upon arrival was nonacute. He has not reported any sinus type complaints. Plan for continued monitoring, morphine if chest pain were to return, will follow up on trop trend. Continue telemetry. Will check interval chest x-ray and encourage incentive spirometry. Patient working with physical therapy. Consider for further cardiac work-up pending course. VS,Fishbone, I+O VS, Fishbone, I+O Laboratory Tests 08/31/21 05:03 Vital Signs Date Time Temp Pulse Resp B/P (MAP) Pulse Ox O2 Delivery O2 Flow Rate FiO2 08/31/21 19:42 98.7 89 18 136/92 (107) 98 Room Air I&O- Last 24 Hours up to 6 AM 09/01/21 05:59 Intake Total 540 ml Output Total 0 ml Balance 540 ml STEVAN HERNANDEZ NP Sep 01, 2021 01:25
[2021-09-01 06:00] VITALS: BP 100/67
[2021-09-01] MEDS: ENOXAPARIN 40MG/0.4ML SYRINGE (J1650 PER 10MG) SC SCH (08:27)
[2021-09-01] MEDS: ATORVASTATIN 20 MG TAB PO SCH (08:28)
[2021-09-01] MEDS: ASPIRIN 81MG ENTERIC TABLET PO SCH (08:28)
[2021-09-01] MEDS: HumaLOG INSULIN (NovoLOG) PER UNIT SC SCH ×2 (08:28→12:00)
[2021-09-01 08:29] VITALS: BP 108/69
--- NOTE | 2021-09-01 08:34 | REP ---
INDICATION: chest pain episode, interval check for developing process COMPARISON: 08/29/2021 TECHNIQUE: Portable AP view of the chest FINDINGS: The mediastinum and cardiac silhouette are stable and within normal limits for portable technique. The lung guzmán are clear without acute consolidation, effusion, or pneumothorax. Skeletal structures are intact. IMPRESSION: No acute cardiopulmonary process appreciated. <Electronically signed by Scott Dos Santos > 09/01/21 [id number]
[2021-09-01] MEDS ORDERED: ASPI-551 PO (09:36)
[2021-09-01] MEDS ORDERED: ATOR1TAB21 PO (09:36)
[2021-09-01] MEDS ORDERED: LISI10TA22 PO (09:36)
--- NOTE | 2021-09-01 16:23 | ECGEPIP ---
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 Nonspecific T wave abnormality new compared with 08/29/2021. Electronically Signed on 09-01-2021 16:23:12 EST by Viral Walden
--- NOTE | 2021-09-01 22:13 | DS.PDOC ---
Discharge Summary General Date of Admission Aug 29, 2021 at 09:39 Date of Discharge 09/01/21 Discharge Summary PROCEDURES PERFORMED DURING STAY: [None]. 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 HOSPITAL COURSE: 51-year-old right-handed male retired from 20 years in [employer] with history of diabetes, hypertension, kidney stones presented to the emergency room with right-sided weakness which started last night at around 8 PM. Patient reported that on 08/25/2021 he felt a little weakness of his right hand but improved so he did not pay any attention. Then again on 08/28/2021 he noticed right-handed weakness while he was at work EMS was called they evaluated him and did not see any weakness and there was no change in speech so was instructed to follow-up with the primary care provider. After he got home from work he noticed a change in his speech and he was having trouble drinking fluids and then in the evening while he was playing video games he was having trouble using his right hand. He was having trouble with coordination of the right hand and could not control the suri console properly. He fell asleep and when he woke up this morning he had severe weakness of his right upper extremity right lower extremity with abnormality in speech and deviation of the face to the left so presented to the emergency room. In the ED he was noted to have right-sided hemiparesis. He had a CT head done which was negative for any acute stroke. He subsequently had an MRI of brain done which showed multiple small all less than 1 cm acute to subacute stroke strokes in the left thalamus, capsular and medial temporal lobes coinciding with the left DIE OUT WORKER territory. Patient was admitted for acute cerebral infarction with right-sided hemiparesis. Acute ischemic stroke Acute stroke involving the left DIE OUT WORKER territory with symptoms of right facial weakness, right upper extremity weakness, ataxia, sensory loss. Patient is right-handed. Continue aspirin 81 and atorvastatin 40 Hypercoagulable work-up sent The patient on telemetry. No events till date Echo Left ventricular ejection fraction (LVEF) 55% by visual estimate. Grade 1 LV diastolic dysfunction. Neurology consult appreciated. PT /OT and swallow evaluation MRA carotids no occlusion or stenosis. Hypertension allowed permissive hypertension for the first 48 hours. Now will optimize control of BP. will restart lisinopril once BP rises above 140 systolic Diabetes controlled A1c is 6 Will give a lispro as per sliding scale DISCHARGE MEDICATIONS: Please see below. ALLERGIES: Please see below. PHYSICAL EXAMINATION ON DISCHARGE: VITAL SIGNS: Please see below. General Exam: Positive: Alert, Cooperative, No Acute Distress Eye Exam: Positive: PERRLA, Conjunctiva & lids normal, EOMI; Negative: Sclera icteric ENT Exam: Positive: Atraumatic, Mucous membr. moist/pink, Pharynx Normal, Other ENT (Right-sided facial droop and deviation of the angle of the mouth to the left) Neck Exam: Positive: Supple; Negative: JVD, thyromegaly Chest Exam: Positive: Clear to auscultation, Normal air movement Heart Exam: Positive: Rate Normal, Regular Rhythm, Normal S1, Normal S2; Negative: Murmurs, Rubs Telemetry: Positive: No significant arrhythmia Abdomen Exam: Positive: Normal bowel sounds, Soft; Negative: Tenderness Extremity Exam: Negative: Clubbing, Cyanosis, Edema Skin Exam: Positive: Nl turgor and temperature; Negative: Breakdown, Lesion Neuro Exam: Positive: Other (Dysarthria, power 3 x 5 in the right upper extremity and 3 x 5 in the right lower extremity, right inattention) Psych Exam: Positive: Memory Intact, Oriented x 3 LABORATORY DATA: Please see below. IMAGING: MRI brain: Brain: Left thalamocapsular as well as medial left temporal lobe regions of true diffusion restriction with correlative cytotoxic edema on the T2 weighted imaging consistent with acute to subacute recent infarcts. The largest infarcts measure 9 x 7 mm (medial temporal) and 8 x 7 mm (thalamocapsular). No evidence of hemorrhagic conversion. Cerebral ventricles: Normal. No ventriculomegaly. Bones/joints: Unremarkable. Paranasal sinuses: Retention cyst or polyp in the left maxillary sinus. Trace ethmoid mucosal disease. Mastoid air cells: Normal as visualized. No mastoid effusion. Orbital cavity: Unremarkable. Soft tissues: Unremarkable. IMPRESSION: Small, recent acute to subacute left thalamus capsular and medial temporal infarcts corresponding to left DIE OUT WORKER territory. MRA brain: ANTERIOR CIRCULATION: Right internal carotid artery: Intracranial segment is patent with no significant stenosis. No aneurysm. Right middle cerebral artery: No occlusion or significant stenosis. No aneurysm. Right anterior cerebral artery: No occlusion or significant stenosis. No aneurysm. Left internal carotid artery: Intracranial segment is patent with no significant stenosis. No aneurysm. Left middle cerebral artery: No occlusion or significant stenosis. No aneurysm. Left anterior cerebral artery: No occlusion or significant stenosis. No aneurysm. 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 Left vertebral artery: The left vertebral artery is dominant. Patent. Basilar artery: No occlusion or severe stenosis. There may be a mild stenosis of the proximal basilar artery, image 6 series 206. No aneurysm. Right posterior cerebral artery: Patent. origin of the right posterior cerebral artery. Left posterior cerebral artery: No occlusion or significant stenosis. No aneurysm. IMPRESSION No proximal intracranial arterial occlusion or significant proximal stenosis seen. Carotid MRI: FINDINGS: Right common carotid artery: No stenosis. No dissection or occlusion. Right internal carotid artery: No stenosis of the extracranial segment. No dissection or occlusion. Right external carotid artery: No stenosis. No dissection or occlusion of the origin. Right vertebral artery: Non dominant unremarkable right vertebral artery. Left common carotid artery: No stenosis. No dissection or occlusion. Left internal carotid artery: No stenosis of the extracranial segment. No dissection or occlusion. Left external carotid artery: No stenosis. No dissection or occlusion of the origin. Left vertebral artery: Dominant unremarkable left vertebral artery. IMPRESSION: Limited study secondary to motion artifact. No stenosis. No dissection or occlusion. ECHO: 2D Measurements: Left atrium 3.2 cm Intraventricular septum 1.57 cm Posterior wall 1.18 cm Left ventricle diastole 3.6 cm Aortic root 3.2 cm Inferior vena cava 2.1 cm Doppler Measurements: No aortic regurgitation No aortic stenosis Aortic valve velocity 140 cm/sec LVOT velocity 99.7 cm/sec LVOT VTI 22.1 cm No mitral regurgitation No mitral stenosis Mitral E velocity 70.3 cm/sec Mitral A velocity 71.1 cm/sec Mitral deceleration time 230 msec No tricuspid regurgitation No pulmonic regurgitation Pulmonary artery acceleration time 95 msec MITRAL ANNULAR TISSUE DOPPLER: E prime septal 5.8 cm/sec E prime lateral 10.0 cm/sec DESCRIPTION: Rhythm was sinus. Image quality was fair. No pericardial effusion. This was a 2D, M-mode, color flow Doppler and pulse wave Doppler examination and included mitral annular tissue Doppler. CONCLUSIONS: 1. Mild concentric left ventricular hypertrophy. Normal regional left ventricular (LV) wall motion and wall thickening. Normal LV systolic function. Left ventricular ejection fraction (LVEF) 55% by visual estimate. Grade 1 LV diastolic dysfunction. 2. Otherwise normal appearing echocardiogram Doppler findings. ACTIVITY: [As tolerated]. DIET: Carb consistent DISCHARGE PLAN: Home with services DISCHARGE INSTRUCTIONS: Follow-up with neurology in 4 to 6 weeks Follow-up with PMD in 1 to 2 weeks ITEMS TO FOLLOWUP ON ON OUTPATIENT: Follow-up hypercoagulable work-up DISCHARGE CONDITION: [Stable]. TIME SPENT ON DISCHARGE: 35 minutes. Vital Signs/I&Os Vital Signs Date Time Temp Pulse Resp B/P (MAP) Pulse Ox O2 Delivery O2 Flow Rate FiO2 09/01/21 08:29 108/69 09/01/21 06:00 97.6 58 18 98 Room Air I&O- Last 24 Hours up to 6 AM 09/01/21 07:00 Intake Total 540 ml Output Total 0 ml Balance 540 ml Laboratory Data Labs 24H Laboratory Tests 2 09/01/21 01:08: Troponin I < 0.02 09/01/21 06:03: Troponin I < 0.02 09/01/21 06:55: Bedside Glucose (Misc Panel) 137H 09/01/21 07:07: Troponin I < 0.02 09/01/21 11:40: Bedside Glucose (Misc Panel) 106H 09/01/21 15:29: Lab Scanned Report Miscellaneous Lab FSBS Laboratory Tests Test 09/01/21 06:55 09/01/21 11:40 Range/Units Bedside Glucose (Misc Panel) 137 106 70-105 MG/DL Discharge Medications Scheduled Aspirin (Aspirin EC) 81 Mg Tablet.dr 81 MG PO DAILY Atorvastatin Calcium (Atorvastatin Calcium) 20 Mg Tablet, 40 MG PO QHS Lisinopril (Lisinopril) 10 Mg Tablet, 5 MG PO QHS Metformin HCl (Metformin HCl) 500 Mg Tablet, 2,000 MG PO QHS, (Reported) Allergies Coded Allergies: No Known Allergies (Unverified , 08/29/21) Kimberli Chauhan MD Sep 01, 2021 22:13
[2021-09-03 13:09] LABS: ANCA-ATYPICAL <1:20 titer (Neg:<1:20); ANTI THROMBIN 3 ANTIGEN IMMUNO 86 % (72-124); ANTI THROMBIN 3 FUNCT ACTIVITY 102 % (75-135); ANTINUCLEAR ANTIBODIES DIRECT Negative (Negative); CARDIOLIPIN IGA ANTIBODY <9 APL U/mL (0-11); CARDIOLIPIN IGG ANTIBODY <9 GPL U/mL (0-14); CARDIOLIPIN IGM ANTIBODY 11 MPL U/mL (0-12); CYTOPLASMIC NEUTROP AB ANCA-C <1:20 titer (Neg:<1:20); PERINUCLEAR AB ANCA-P <1:20 titer (Neg:<1:20); PROTEIN C ANTIGEN 137 % (60-150); PROTEIN S ANTIGEN FREE 101 % (61-136); PROTEIN S ANTIGEN TOTAL 99 % (60-150); SJOGREN'S ANTI SS-A <0.2 AI (0.0-0.9); SJOGREN'S ANTI SS-B <0.2 AI (0.0-0.9)
== END 2021-09-01 12:38 | disposition home or self-care (01) | DRG 66 ==
LOC: M ED 07:50 → EDBD 07:50 → M ED INP 09:39 → ENRESERV 18:36 → M PCU 20:59 → M MSPAV 08-31 12:45
PROVIDERS: ADMIT Internal Medicine Nephrology; ATTEND Internal Medicine Nephrology
DX: I63.9 Cerebral infarction, unspecified (principal); R53.1 Weakness; Z20.822 Contact with and (suspected) exposure to COVID-19; I10 Essential (primary) hypertension; E11.9 Type 2 diabetes mellitus without complications; R47.81 Slurred speech; Z79.84 Long term (current) use of oral hypoglycemic drugs; Z79.899 Other long term (current) drug therapy; Z96.0 Presence of urogenital implants

== ENCOUNTER 2021-10-06 09:20 | Outpatient (RCR) | payer OTHER ==
[~2021-10-06 09:20] MED LIST changes: +ASPI-551 PO; +ATOR1TAB21 PO; +LISI10TA22 PO
== END 2021-10-10 ==
LOC: M ST 09:20
PROVIDERS: ATTEND Emergency Medicine
DX: I69.351 Hemiplegia and hemiparesis following cerebral infarction affecting right dominant side (principal); I69.320 Aphasia following cerebral infarction